=== PATIENT | male | born 1950 | race Caucasian/White ===

== ENCOUNTER 2018-07-13 09:50 | Day surgery (SDC) | payer OTHER ==
[~2018-07-13] VITALS: Ht 177.8 cm; Wt 69.8 kg
[~2018-07-13 09:50] MED LIST: LIPITOR40 MG PO; ZESTRIL20 MG PO
[2018-07-13] MEDS ORDERED: HYDROCODON-ACE1 EA10 PO (12:50)
[2018-07-13] MEDS ORDERED: GABAPENTIN300 MG PO (12:50)
--- NOTE | 2018-07-13 12:59 | NUR ---
07/13/18 Kurt9 Love Tucker 1252 PT TO PACU AWAKE AND ALERT DENIES PAIN AND NAUSEA. PT ON ROOM AIR SATS ABOVE 95%
--- NOTE | 2018-07-14 12:11 | OR ---
[facility] [address] [place], [place] [address] Signed DATE OF OPERATION: 07/13/2018 SURGEON: Rozina Tucker MD PREOPERATIVE DIAGNOSIS: Carpal tunnel, right. POSTOPERATIVE DIAGNOSIS: Carpal tunnel, right. PROCEDURE PERFORMED: Carpal tunnel release, right. INTER FOLD ROLL CUTTER: None. ANESTHESIA: [place] block for anesthesia. TOURNIQUET TIME: 20 minutes. BRIEF HISTORY: Mr. Benedict is a 67-year-old gentleman with pain and numbness in his hand. Risks, benefits, and alternatives were discussed with him for surgery after nerve conductions confirmed [id number] carpal tunnel. He elected to proceed. DESCRIPTION OF PROCEDURE: Once consent was obtained, he was taken to the operating room after adequate anesthesia. He was placed on the operating table. All downside pressure points well padded. The arm was prepped and draped in a standard sterile fashion and the incision was made in the distal wrist crease, carried through skin and subcutaneous tissue. Palmaris longus was identified, retracted, and protected. The transverse carpal ligament was identified under loupe magnification and was dissected free of overlying soft tissue proximally and distally. It was then released proximally a centimeter and distally to the distal extent. This was palpated using a Tyler and found to be completely released. The wound was copiously irrigated with antibiotic solution and closed with 3-0 nylon, and dressed with bacitracin Adaptic, 4 x 8, and gauze. We did infiltrate 7 mL of 0.25% plain Marcaine at the end of the case for postoperative pain control. He did very well and was taken to the recovery room in satisfactory condition. Electronically Signed By: ROZINA TUCKER MD 07/14/18 1211 PATIENT NAME: BHAVIN BENEDICT OPERATIVE REPORT DATE OF : 46 REPORT #: [id number] PHYSICIAN: ROZINA TUCKER MD PCP: GADIEL SOLIS REPORT IS CONFIDENTIAL AND NOT TO BE RELEASED WITHOUT AUTHORIZATION [address] [address] Signed Rozina Tucker MD BA/CHERYLEL /[id number] Copies: ~ Electronically Signed By: ROZINA TUCKER MD 07/14/18 1211 PATIENT NAME: BHAVIN BENEDICT OPERATIVE REPORT DATE OF : 46 REPORT #: [id number] PHYSICIAN: ROZINA TUCKER MD PCP: GADIEL SOLIS REPORT IS CONFIDENTIAL AND NOT TO BE RELEASED WITHOUT AUTHORIZATION
== END 2018-07-13 18:00 | disposition home or self-care (01) ==
LOC: OPS 09:50 → DS 09:50 → OPS 11:00
PROVIDERS: Specialist
PROC: 01N50ZZ Release Median Nerve, Open Approach (ICD-10-PCS; principal; 2018-07-13 11:45)
DX: G56.01 Carpal tunnel syndrome, right upper limb (principal); Z79.899 Other long term (current) drug therapy
CPT/HCPCS: 01810; J1100; J1885; J2250; J2405; J2704

== ENCOUNTER 2021-10-29 20:56 | Emergency (ER) | payer OTHER ==
[~2021-10-29] VITALS: Ht 177.8 cm; Wt 73.0 kg
[~2021-10-29 20:56] MED LIST changes: +GABAPENTIN300 MG PO; +HYDROCODON-ACE1 EA10 PO
[2021-10-30] MEDS ORDERED: HYDROCODON-ACE1 EA11 PO (16:20)
== END 2021-10-29 22:36 | disposition home or self-care (01) ==
LOC: ED 20:56
DX: R55 Syncope and collapse (principal); I10 Essential (primary) hypertension; E78.00 Pure hypercholesterolemia, unspecified; Z87.891 Personal history of nicotine dependence
CPT/HCPCS: 99284

== ENCOUNTER 2021-10-30 13:59 | Emergency (ER) | payer OTHER ==
[~2021-10-30] VITALS: Ht 177.8 cm; Wt 71.7 kg
--- OUTSIDE RECORDS SUMMARY | 2021-10-30 14:08 | XMS ---
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 - 2 Visits in 30 Days CARE PROVIDERS There are no care providers on record at this time. Uziel has no Care Guidelines for this patient. [facility]12 MO.) [facility] NOTE: Visits indicate total known visits. ED/[facility] VISIT TRACKING (12 MO.) 10/30/2021 14:[address] [facility] OR TYPE: Emergency COMPLAINT: - L WRIST INJURY 10/29/2021 20:57 [facility] OR TYPE: Emergency COMPLAINT: - [facility] INPATIENT VISIT TRACKING (12 MO.) No inpatient visits to display in this time frame [email or web address]
[2021-10-30] MEDS ORDERED: HYDROCODON-ACE1 EA11 PO (16:20)
== END 2021-10-30 17:08 | disposition home or self-care (01) ==
LOC: ED 13:59
DX: S63.502A Unspecified sprain of left wrist, initial encounter (principal); W18.30XA Fall on same level, unspecified, initial encounter; I10 Essential (primary) hypertension; E78.00 Pure hypercholesterolemia, unspecified; Z87.891 Personal history of nicotine dependence; Z79.899 Other long term (current) drug therapy
CPT/HCPCS: 73110; 99283-25; A9270

== ENCOUNTER 2021-12-01 13:59 | Emergency (ER) | payer OTHER ==
[~2021-12-01] VITALS: Ht 177.8 cm; Wt 69.4 kg
[~2021-12-01 13:59] MED LIST changes: +HYDROCODON-ACE1 EA11 PO
[2021-12-01] MEDS ORDERED: TOPROL XL25 MG PO (16:42)
--- NOTE | 2021-12-02 02:43 | EKG ---
[facility] [address] [facility] [place] [address] Signed Sinus rhythm with 1st degree AV block with frequent premature ventricular complexes Right bundle branch block Cannot rule out Inferior infarct , age undetermined Abnormal ECG When compared with ECG of 05-JUL-2018 16:12, premature ventricular complexes are now present Right bundle branch block is now present Confirmed by BRYNN WATKINS MD ([id number]) on 12/02/2021 2:42:59 AM Electronically Signed By: BRYNN WATKINS MD 12/02/21 0243 PATIENT NAME: BHAVIN GIL Electrocardiogram DATE OF : 46 PHYSICIAN: BRYNN WATKINS MD REPORT #: [id number] REPORT IS CONFIDENTIAL AND NOT TO BE RELEASED WITHOUT AUTHORIZATION
--- NOTE | 2021-12-02 02:43 | EKG ---
[facility] [address] [facility] [place] [address] Signed Sinus rhythm with 1st degree AV block with frequent premature ventricular complexes in a pattern of bigeminy Right bundle branch block Cannot rule out Inferior infarct (cited on or before 01-DEC-2021) Abnormal ECG When compared with ECG of 01-DEC-2021 15:03, (Unconfirmed) No significant change was found Confirmed by BRYNN WATKINS MD ([id number]) on 12/02/2021 2:43:12 AM Electronically Signed By: BRYNN WATKINS MD 12/02/21 0243 PATIENT NAME: BHAVIN GIL Electrocardiogram DATE OF : 46 PHYSICIAN: BRYNN WATKINS MD REPORT #: [id number] REPORT IS CONFIDENTIAL AND NOT TO BE RELEASED WITHOUT AUTHORIZATION
== END 2021-12-01 16:55 | disposition home or self-care (01) ==
LOC: ED 13:59
DX: R00.8 Other abnormalities of heart beat (principal); I10 Essential (primary) hypertension; Z87.891 Personal history of nicotine dependence; Z79.899 Other long term (current) drug therapy
CPT/HCPCS: 36415; 71045; 80053; 84484; 85025; 93005; 93010

== ENCOUNTER 2022-01-03 14:21 | Emergency (ER) | payer OTHER ==
[~2022-01-03] VITALS: Ht 177.8 cm; Wt 74.4 kg
[~2022-01-03 14:21] MED LIST changes: +TOPROL XL25 MG PO
[2022-01-03] MEDS ORDERED: METOPROLOL TART25 MG PO (17:46)
--- NOTE | 2022-01-03 19:22 | EKG ---
[facility] [address] [facility] [place] [address] Signed Sinus rhythm with 1st degree AV block with frequent premature ventricular complexes in a pattern of bigeminy Possible Left atrial enlargement Right bundle branch block Cannot rule out Inferior infarct (cited on or before 01-DEC-2021) Abnormal ECG When compared with ECG of 01-DEC-2021 15:24, No significant change was found Confirmed by SUE SCHERER MD ([id number]) on 01/03/2022 7:22:08 PM Electronically Signed By: SUE SCHERER MD 01/03/221921 PATIENT NAME: BHAVIN GIL Electrocardiogram DATE OF : 46 PHYSICIAN: SUE SCHERER MD REPORT #: [id number] REPORT IS CONFIDENTIAL AND NOT TO BE RELEASED WITHOUT AUTHORIZATION
== END 2022-01-03 18:06 | disposition home or self-care (01) ==
LOC: ED 14:21
DX: R00.8 Other abnormalities of heart beat (principal); R42 Dizziness and giddiness; I10 Essential (primary) hypertension; E78.00 Pure hypercholesterolemia, unspecified; Z87.891 Personal history of nicotine dependence; Z79.899 Other long term (current) drug therapy
CPT/HCPCS: 36415; 80053; 81001; 83735; 84484; 85025; 93005; 93010; 99284-25